=== PATIENT | female | born 1995 | race Caucasian/White ===

== ENCOUNTER 2016-07-12 16:55 | Emergency (ER) | payer OTHER ==
[~2016-07-12] VITALS: Ht 160 cm; Wt 53.7 kg
[2016-07-12 17:23] VITALS: TEMP 37; Ht 160 cm; Wt 53.7 kg
[2016-07-12] MEDS ORDERED: MUPIROCIN 2% OINT 22 GM TUBE EXT STA (17:56)
[2016-07-12] MEDS ORDERED: NAPROXEN 250 MG TAB PO STA (17:56)
[2016-07-12] MEDS ORDERED: HYDR-5688 PO (18:10)
[2016-07-12] MEDS ORDERED: NAPR-1169 PO (18:10)
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
[2016-07-12 18:28] VITALS: BP 105/78; PULSE 72; O2SAT 99
== END 2016-07-12 18:31 | disposition home or self-care (01) ==
LOC: C.EDB 16:56 → C.EDD 18:31
DX: T22.211A Burn of second degree of right forearm, initial encounter (principal); T22.212A Burn of second degree of left forearm, initial encounter; X19.XXXA Contact with other heat and hot substances, initial encounter